=== PATIENT | female | born 1945 | race Native Hawaiian/Other Pacific Islander ===

== ENCOUNTER 2016-07-22 15:44 | Outpatient (CLI) | payer OTHER, MEDICARE | END 2016-07-22 19:11 | disposition home or self-care (01) | LOC: RAD 15:44 | DX: M05.79 Rheumatoid arthritis with rheumatoid factor of multiple sites without organ or systems involvement (principal); M19.041 Primary osteoarthritis, right hand; Z79.891 Long term (current) use of opiate analgesic; Z79.899 Other long term (current) drug therapy; Z51.81 Encounter for therapeutic drug level monitoring ==